=== PATIENT | male | born 2005 | race Caucasian/White ===

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

== ENCOUNTER 2023-09-03 20:57 | Emergency (ER) | payer BC ==
[2023-09-03] MEDS ORDERED: Lidocaine 1% PF 5 ML VIAL ONE (21:11)
[2023-09-03] MEDS ORDERED: Bacitracin 1 PK ONE (21:53)
== END 2023-09-03 22:00 | disposition home or self-care (01) ==
LOC: BURERS 20:57
DX: S91.211A Laceration without foreign body of right great toe with damage to nail, initial encounter (principal); X58.XXXA Exposure to other specified factors, initial encounter
CPT/HCPCS: 11730